=== PATIENT | male | born 1950 | race Caucasian/White ===

== ENCOUNTER 2022-01-20 07:43 | Day surgery (SDC) | payer MEDICARE, OTHER ==
[2022-01-20] MEDS ORDERED: Propofol 200 MG/20 ML SDV IV ONE (07:44)
[2022-01-20] MEDS ORDERED: Sodium Chloride 0.9% 10 ML Syringe FLUSH PRN (07:45)
[2022-01-20] MEDS ORDERED: Lactated Ringers 1,000 ML IV SCH (07:45)
[2022-01-20] MEDS ORDERED: Labetalol 20 MG/4 ML Syringe IVPUSH ONE (09:02)
[2022-01-20 11:08] VITALS: BP 133/94; PULSE 69
== END 2022-01-20 10:32 | disposition home or self-care (01) ==
LOC: FB.SDS 07:43
PROVIDERS: ATTEND Surgery
DX: Z12.11 Encounter for screening for malignant neoplasm of colon (principal); D12.6 Benign neoplasm of colon, unspecified; K57.30 Diverticulosis of large intestine without perforation or abscess without bleeding; K42.0 Umbilical hernia with obstruction, without gangrene; E78.5 Hyperlipidemia, unspecified; I10 Essential (primary) hypertension; E66.01 Morbid (severe) obesity due to excess calories; Z79.899 Other long term (current) drug therapy; Z98.890 Other specified postprocedural states; Z68.35 Body mass index [BMI] 35.0-35.9, adult
CPT/HCPCS: 00812; 45384; 45385; 88305; J2704; J3490; J7120